=== PATIENT | female | born 1985 | race Caucasian/White ===

== ENCOUNTER → 2016-09-03 | Outpatient (CLI) | payer OTHER | LOC: MW.CHGS 15:24 | PROVIDERS: ATTEND Surgery | DX: N64.4 Mastodynia (principal); N63 Unspecified lump in breast | CPT/HCPCS: 36415; 85027; 85730 ==

== ENCOUNTER → 2016-09-11 | Outpatient (CLI) | payer OTHER ==
--- NOTE | 2016-09-12 13:46 | MY ---
EXAMINATION: Right digital diagnostic mammogram. HISTORY: Abnormal ultrasound. Mammogram is obtained for comparison. FINDINGS: Right heterogeneously dense breast tissue. There is a small, round 4 mm mass at the appr oximate 8 o'clock to 9 o'clock position of the right breast. This corresponds to the cystic mass dem onstrated on the previous ultrasound. Otherwise no abnormal mass or calcification identified. No ski n thickening or nipple inversion. IMPRESSION: BI-RADS category 0 - Incomplete study. Ultrasound-guided biopsy was performed following the mammogram. Please follow-up according to pathology results. THE FALSE-NEGATIVE RATE OF MAMMOGRAM IS APPROXIMATELY 10%. MANAGEMENT OF A PALPABLE ABNORMALITY MUST BE BASED UPON CLINICAL GROUNDS. SENSITIVITY FOR DETECTION OF ABNORMALITIES IN DENSE BREASTS IS LOW. NOTE: A letter will be sent to the patient regarding findings.
--- NOTE | 2016-09-12 16:28 | US ---
EXAMINATION: Ultrasound guided right breast biopsy HISTORY: Pain COMPARISON: 08/23/2016 TECHNIQUE: The procedure, risks, and benefits were discussed with the patient. Informed consent was obtained. The 5 to 6 mm complex cyst was again noted at the 10:00 position. The overlying area was s terilely prepped and draped. 1% lidocaine was administered for local anesthesia. Using ultrasound gu idance a total of 3 14-gauge core biopsies were obtained of the region of concern. Following the fir st biopsy the area was not well appreciated. A clip was placed following the procedure. The patient tolerated the procedure well. IMPRESSION: Successful ultrasound-guided biopsy of the right breast mass.
== END | disposition home or self-care (01) ==
LOC: MW.MAM 10:24
PROVIDERS: ATTEND Surgery
DX: N63 Unspecified lump in breast (principal); N64.4 Mastodynia
CPT/HCPCS: 19083; 88305; G0206